=== PATIENT | female | born 1970 | race Hispanic/Latino ===

== ENCOUNTER 2019-02-19 09:47 | Day surgery (SDC) | payer BC ==
[~2019-02-19 09:47] MED LIST: NACL 0.9% 1000 ML 1,000 ML IV SCH
--- NOTE | 2019-02-19 12:41 | Anesthesia Consultation ---
Anesthesia Consult and Med Hx Date of service: 02/19/19 - Airway Anesthetic Teeth Evaluation: Good (some of the teeth are loose from gum disease) ROM Head & Neck: Adequate Mental/Hyoid Distance: Adequate Mallampati Class: Class II Intubation Access Assessment: Probably Good - Pre-Operative Health Status ASA Pre-Surgery Classification: ASA2 Proposed Anesthetic Plan: MAC - Cardiovascular System Hx Coronary Artery Disease: No (high cholesterol) - Central Nervous System Hx Psychiatric Problems: Yes (anxiety) - Additional Comments Anesthesia Medical History Comments: herpes
--- NOTE | 2019-02-19 12:42 | Anesthesia Day of Surgery ---
Anesthesia Day of Surgery - Day of Surgery Patient Examined: Yes Patient H&P Reviewed: Yes Patient is NPO: Yes
[2019-02-19] MEDS ORDERED: DIPRIVAN 10 MG/ML IV ONE (12:45)
--- NOTE | 2019-02-19 13:12 | History and Physical Report ---
HISTORY OF PRESENT ILLNESS: This is a 48-year-old white female with underlying history of hyperlipidemia, family history of cancer. The patient's grandmother had breast cancer. The patient, because of her age, had a Cologuard test done, which was noted to be positive. She has come for evaluation for colonoscopy to assess for possible colon polyps. ALLERGIES: She has no known allergies. SOCIAL HISTORY: Denies history of smoking, rarely drinks alcohol. PHYSICAL EXAMINATION: VITAL SIGNS: Stable. HEENT: Shows no JVD. LUNGS: Clear to auscultation. CARDIOVASCULAR: Normal. ABDOMEN: Soft. Bowel sounds present. NEUROLOGIC: The patient is otherwise alert and oriented. ASSESSMENT: Colon polyp screening. The patient was positive for the Cologuard test, has a family history of cancer. Grandmother had breast cancer, has a history of hyperlipidemia and remote history of C-sections x 2. Plan is to do a colonoscopy to assess for as part of colon polyp screening, especially patient's Cologuard test was positive. JOB# [id number] TRUPTI/GAYLE
--- NOTE | 2019-02-19 13:24 | Procedure Note ---
Date of procedure: 02/19/19 Pre-op diagnosis: Colon Polyp Screening Post-op diagnosis: other (No Colon Polyp or diverticular Disease or Colitis noted/ Minor,Internal Hemorrhoid/Possible Ileitis (with bleeding from the terminal ileum)) Procedure: Colonoscopy with Biopsy Anesthesia: MAC Surgeon: CUBA LI Estimated blood loss: minimal Pathology: list Specimen disposition: to lab Condition: stable Disposition: same day (Avoid aspirin,NSAID and anticoagulants for 4 days,otherwise resume home medication and follow up in 1 to 2 weeks ([phone]))
[2019-02-19 14:08] VITALS: BP 114/63
[2019-02-19 14:18] LABS: Hematocrit 39.5 % (30.3-42.9); Hemoglobin 13.3 gm/dl (10.1-14.3)
--- NOTE | 2019-02-19 14:47 | Operative Report ---
PROCEDURE: Colonoscopy with biopsy. INDICATIONS: A 48-year-old white female in otherwise good health, who has an underlying history of hyperlipidemia, does have a family history of cancer. The patient's grandmother had cancer. She underwent a Cologuard test, which was noted to be positive. Procedure was done to assess for any associated polyps secondary to the Cologuard test being positive. DESCRIPTION OF PROCEDURE: Procedure was done after getting informed consent with MAC anesthesia. Initial rectal exam was unremarkable. Instrument was passed through the rectum onto the cecum, which was identified with ileocecal valve and the appendiceal orifice. Visualization was fair to good. There appeared to be some blood in the cecal lumen. The terminal ileum was intubated and the blood was also noted there. Biopsy was done to rule out for possible associated ileitis. The cecum appeared normal in the straight as well as in the retroverted view. There were no additional pathology noted in the cecum, ascending colon, transverse colon, descending colon, and sigmoid. There was no evidence of any polyps, colitis or diverticular disease and the rectum showed mild internal hemorrhoids on the retroverted view. ASSESSMENT: Possible ileitis with some bleeding. Biopsies done from the terminal ileum. No colon polyps noted. No diverticular disease noted. Mild to moderate internal hemorrhoid. The patient will be asked to avoid aspirin and aspirin-related products for the next few days. Await for the biopsy results. Follow up in the office in 1-2 weeks' time. Procedure was done in the GI lab in the presence and with the assistance of the GI lab team, which included Rain VARNER as well as the OR, tech and with the assistance of anesthesia. JOB# [id number] TRUPTI/GAYLE
== END 2019-02-19 09:48 | disposition home or self-care (01) ==
LOC: GIO 09:47
DX: K63.89 Other specified diseases of intestine (principal); K64.8 Other hemorrhoids; R19.5 Other fecal abnormalities; E78.5 Hyperlipidemia, unspecified; F41.9 Anxiety disorder, unspecified; Z80.3 Family history of malignant neoplasm of breast; Z80.8 Family history of malignant neoplasm of other organs or systems; Z88.2 Allergy status to sulfonamides; Z88.5 Allergy status to narcotic agent; Z79.899 Other long term (current) drug therapy
CPT/HCPCS: 36415; 45380; 81025; 85014; 85018; 88305; J2704; J7030